=== PATIENT | male | born 1975 | race Caucasian/White ===

== ENCOUNTER 2023-03-27 16:20 | Inpatient (IN) ==
--- OUTSIDE RECORDS SUMMARY | 2023-03-27 16:24 | External Medical Summary ---
Author Name Unknown Address Unknown Organization [id number]:[facility] [place] [address] [facility] [address] Laboratory Report Ordering Provider Test Date Status DEV BARLOW 03/16/2023 11:22:42 Final Observation Date Value Abnormality Reference (Units ) Status TSH 03/16/2023 11:22:42 1.80 0.27-4.20 (uIU/mL) Final Performing Location [facility] [place] [facility] [address] [facility] [address]
--- OUTSIDE RECORDS SUMMARY | 2023-03-27 16:24 | External Medical Summary ---
Author Name Unknown Address Unknown Organization [id number]:[place] [place] [address] [facility] [address] Laboratory Report Ordering Provider Test Date Status CARMINA PLUNKETT 03/16/2023 11:22:42 Final Observation Date Value Abnormality Reference (Units ) Status Triglyceride 03/16/2023 11:22:42 140 <=174 ( mg/dL) Final Triglyceride Reference Range s (mg/dL):
<150 Acceptable
150-174 Borderline high
175-499 High
>=500 Very high Cholesterol 03/16/2023 11:22:42 195 <200 (mg /dL) Final Total Cholesterol Reference Ranges (mg/dL):
<200 Desirable
200-239 Borderline high
>=240 High HDL 03/16/2023 11:22:42 38 Below low normal >39 (mg/dL) Final HDL Cholesterol Reference Ra nges (mg/dL):
>=60 High (Desirable)
<50 Low (Undesirable) For Females
<40 Low (Undesirable) For Males NON-HDL CHOLESTEROL 03/16/2023 11:22:42 157 <=159 (mg/dL) Final Non-HDL Cholesterol Referenc e Range (mg/dL):
<100 Target level for high risk ASCVD patient
<130 Optimal for general population
130-159 Near optimal for general population
160-189 Borderline High
190-219 High
>=220 Very High LDL, (calculated) 03/16/2023 11:22:42 129 <= 129 (mg/dL) Final LDL Cholesterol Reference Ra nges (mg/dL):
<70 Target level for high risk ASCVD patient
<100 Optimal for general population
100-129 Near optimal for general population
130-159 Borderline high
160-189 High
>=190 Very high Performing Location LAB[facility] [place] - [address] [facility] [address]
--- OUTSIDE RECORDS SUMMARY | 2023-03-27 16:24 | External Medical Summary ---
Author Name Unknown Address Unknown Organization [id number]:[place] [facility] [place] [address] [facility] [address] [facility] [address] Laboratory Report Ordering Provider Test Date Status DIMITRIOSSIDNEYJAMIE 03/16/2023 11:22:42 Final Observation Date Value Abnormality Reference (Units ) Status HbA1C 03/16/2023 11:22:42 11.4 Above high normal 4. 0-5.6 (%) Final The use of HbA1c to monitor glycemic status is based on normal hemoglobin and HbA composition. This test should not be used in patients with abnormal hemoglobin that affects the half life of the red blood cell or the in vivo glycation rates. Glucose, estimated average 03/16/2023 11:22:42 280 Above high normal <126 (mg/dL) Junior suggs Performing Location [facility] [facility] [facility] [place] [address] [facility] [address]
--- OUTSIDE RECORDS SUMMARY | 2023-03-27 16:24 | External Medical Summary | Summary of Care ---
Author Name Unknown Organization [facility] Address [address] [place] [address] Phone [phone] Care Team Providers Care Fish Dressing Machine Feeder Name Role Phone Marlin Mason PA-C Primary Care Provider [phone] Reason for Visit * Reason Onset Date Comments Medication Refill 03/13/2023 Encounter Details Date Type Department Care Team ([facility] st Contact Info) Description 03/13/2023 Telephone [facility] [address] [place] [address] Marlin Mason PA-C [address] [place] [address] Medication Refill Allergies Active Allergy Reactions Criticality Noted Date Comments Metformin Diarrhea 06/24/2022 extreme documented as of this encounter (statuses as of 03/13/2023) Medications Medication Sig Dispensed Refills Start Date End Date Status HYDROCHLOROTHIAZIDE 25 MG PO TABSIndications:HTN, goal below 140/90 one tab by mouth daily 90 3 12/01/2006 Active Omeprazole 20 MG Oral Capsule Delayed Release (PriLOSEC)Indications :Gastroesophageal reflux disease with esophagitis without hemorrhage Take 1 Capsule by mouth in the morning. 1 hour before the first meal of the day. 90 Capsule 3 06/24/2022 Active Rosuvastatin Calcium 40 MG Oral Tablet (Crestor) Take 1 Tablet by mouth in the morning. 90 Tablet 3 06/27/2022 Active SITagliptin Phosphate 100 MG Oral Tablet (Januvia)Indications: Type 2 diabetes mellitus with hemoglobin A1c goal of less than 7.0% (HCC) Take 1 Tablet by mouth in the morning. 90 Tablet 1 06/27/2022 Active Lisinopril 40 MG Oral TabletIndications:HTN , goal below 140/90 Take 1 Tablet by mouth in the morning. 90 Tablet 1 08/24/2022 Active amLODIPine Besylate 10 MG Oral Tablet (Norvasc) One tablet by mouth in the morning 90 Tablet 1 08/24/2022 Active Metoprolol Succinate ER 25 MG Oral Tablet Extended Release 24 Hour (toPROL XL) Take 1 Tablet by mouth in the morning. 90 Tablet 1 08/24/2022 Active PARoxetine HCl 40 MG Oral Tablet (pAXil) TAKE 1 TABLET BY MOUTH IN THE MORNING 90 Tablet 1 01/30/2023 Active glipiZIDE 10 MG Oral Tablet (Glucotrol) TAKE 1 TABLET BY MOUTH TWICE DAILY 30 MIN BEFORE MORNING AND EVENING MEALS 180 Tablet 1 02/15/2023 Active documented as of this encounter (statuses as of 03/13/2023) Active Problems Problem Noted Date Diagnosed Date HTN, goal below 140/90 06/12/2006 ADVANCE DIRECTIVE INFORMATION 02/16/2005 Overview: booklet given documented as of this encounter (statuses as of 03/13/2023) Immunizations Name Administration Dates Next Due COVID-19 mRNA, LNP-s, No Pre serve, 2-Dose Series (InfiniDB) 07/16/2020,06/25/2020 Hepatitis B, 20+ yrs 01/24/2022 PPD 01/17/2022 Seasonal Influenza Virus Vac cine, Unspecified Formulation 01/07/2020,01/10/2017,01/24/2014 Seasonal Influenza, PF, 6 M & above, IM , (FluLaval or Fluzone) 01/19/2022 Tetanus Toxid Adsorbed 12/06/2010 documented as of this encounter Social History Tobacco Use Types Packs/Day Years Used Date Smoking Tobacco: Never Smokeless Tobacco: Never Comments:September 2004, prior on e PPD Alcohol Use Standard Drinks/Week Comments Never 0 (1 standard drink = 0.6 oz pur e alcohol) Sex and Gender Information Value Date Recorded Sex Assigned at Not on file Gender Identity Not on file Sexual Orientation Not on file Job Start Date Occupation Industry Not on file Not on file Not on file documented as of this encounter Miscellaneous Notes * Telephone Encounter - Ab Esquivel cook frozen dessert - 03/13/2023 1:13 PM EST Pt calling to request glipiZIDE 10 MG Oral Tablet (Glucotrol) . Informed pt that RX is available at their pharmacy. Pt verbalized understanding and stated they will check with their pharmacy regarding this medication. Thank you, Ab Esquivel Tooth Clerk I [facility] ([facility]) 03/13/2023,1:14 PM documented in this encounter Plan of Treatment Upcoming Encounters Date Type Department Care Team (Late st Contact Info) Description 03/15/2023 2:40 PM EST Office Visit [facility] [address] [place] [address] Marlin Mason PA-C [address] [place], [place] [id number] Health Maintenance Due Date Last Done Comments Pneumococcal Vaccine: Pediatrics (0 to 5 Years) and At-Risk Patients (6 to 64 Years) (1 - PCV) 1982 Depression Screening 1988 HIV Screening 1991 Hepatitis C Screening 1994 DTaP,Tdap,and Td Vaccines (1 - Tdap) 1995 Cologuard 2021 Colonoscopy 2021 Colorectal Cancer Screening 2021 Fecal Occult Blood Test 2021 Sigmoidoscopy 2021 Hepatitis B (2 of 3 - 19+ 3-dose series) 02/21/2022 01/24/2022 COVID-19 Vaccine (3 - 2022- season) 2022 07/16/2020, 06/25/2020 Influenza Vaccine (FLU shot) (#1) 2022 01/19/2022, 01/07/2020, 01/10/2017, Additional history exists GFR 06/25/2023 06/24/2022, 06/12/2006 Albumin/Creatinine Ratio 06/24/2025 06/24/2022 Diabetes Screening 06/24/2025 06/24/2022, 0 06/24/2022, 06/12/2006 Lipid Panel 06/25/2027 06/24/2022, 06/12/2006 GARDASIL-HPV IMMUNIZATION SERIES Aged Out No longer eligible based on patient's age to complete this topic MENINGOCOCCAL (MENACTRA/MENVEO) Aged Out No longer eligible based on patient's age to complete this topic documented as of this encounter Medical Devices Not on filedocumented as of this encounter Care Teams Fish Dressing Machine Feeder Relationship Specialty Start Date End Date Marlin Mason PA-C [address] [place] [id number] PCP - General Physician Glazing Machine Operator 06/24/22 documented as of this encounter
--- OUTSIDE RECORDS SUMMARY | 2023-03-27 16:24 | External Medical Summary | Summary of Care ---
Author Name Unknown Organization [facility] Address [address] [place] [address] Phone [phone] Care Team Providers Care Critical Power Install Technician Name Role Phone Marlin Mason PA-C Primary Care Provider [phone] [phone] Reason for Visit * Reason Comments Emergency Department Follow-Up Encounter Details Date Type Department Care Team (Latest Contact Info) Description 03/16/2023 10:20 AM EST Office Visit [facility] [address] [place] [address] Wei Melvin MD [address] [place] [address] Type 2 diabetes mellitus with hemoglobin A1c goal of less than 7.0% ([facility])*; HTN, goal below 140/90; Hyperlipidemia, unspecified hyperlipidemia type; Class 1 obesity without serious comorbidity with body mass index (BMI) of 34.0 to 34.9 in adult, unspecified obesity type; Sinus drainage; Screen for colon cancer Allergies Active Allergy Reactions Criticality Noted Date Comments Metformin Diarrhea 06/24/2022 extreme documented as of this encounter (statuses as of 03/16/2023) Medications Medication Sig Dispensed Refills Start Date End Date Status HYDROCHLOROTHIAZ AMBER 25 MG PO TABSIndications: HTN, goal below 140/90 one tab by mouth daily 90 3 12/01/2006 Active Omeprazole 20 MG Oral Capsule Delayed Release (PriLOSEC)Indica tions:Gastroesop hageal reflux disease with esophagitis without hemorrhage Take 1 Capsule by mouth in the morning. 1 hour before the first meal of the day. 90 Capsule 3 06/24/2022 Active Lisinopril 40 MG Oral TabletIndication s:HTN, goal below 140/90 Take 1 Tablet by [...] MORNING AND EVENING MEALS 180 Tablet 1 03/16/2023 Active SITagliptin Phosphate 100 MG Oral Tablet (Januvia)Indicat ions:Type 2 diabetes mellitus with hemoglobin A1c goal of less than 7.0% (HCC) Take 1 Tablet by mouth in the morning. 90 Tablet 3 03/16/2023 Active Simvastatin 40 MG Oral Tablet (Zocor) Take 1 Tablet by mouth every night at bedtime. 90 Tablet 3 03/16/2023 Active Cetirizine HCl 10 MG Oral Tablet (ZyrTEC) Take 1 Tablet by mouth in the morning. 90 Tablet 3 03/16/2023 Active Rosuvastatin Calcium 40 MG Oral Tablet (Crestor) Take 1 Tablet by mouth in the morning. 90 Tablet 3 06/27/2022 3 Discontinued SITagliptin Phosphate 100 MG Oral Tablet (Januvia)Indicat ions:Type 2 diabetes mellitus with hemoglobin A1c goal of less than 7.0% (HCC) Take 1 Tablet by mouth in the morning. 90 Tablet 1 06/27/2022 3 Discontinued(Refi ll) glipiZIDE 10 MG Oral Tablet (Glucotrol) TAKE 1 TABLET BY MOUTH TWICE DAILY 30 MIN BEFORE MORNING AND EVENING MEALS 180 Tablet 1 02/15/2023 3 Discontinued(Refi ll) documented as of this encounter (statuses as of 03/16/2023) Active Problems Problem Noted Date Diagnosed Date Hyperlipidemia 03/16/2023 Type 2 diabetes mellitus wit h hemoglobin A1c goal of less than 7.0% 03/16/2023 HTN, goal below 140/90 06/12/2006 ADVANCE DIRECTIVE INFORMATION 02/16/2005 Overview: booklet given documented as of this encounter (statuses as of 03/16/2023) Immunizations Name Administration Dates Next Due COVID-19 mRNA, LNP-s, No Pre serve, 2-Dose Series (Pfizer) 07/16/2020,06/25/2020 Hepatitis B, 20+ yrs 01/24/2022 PPD [...] on file documented as of this encounter Last Filed Vital Signs Vital Sign Reading Time Taken Comments Blood Pressure 110/80 03/16/2023 10:28 AM EST Pulse 68 03/16/2023 10:28 AM EST Temperature 36.4 C (97.5 F) 03/16/2023 10:[address] Respiratory Rate 18 03/16/2023 10:28 AM EST Oxygen Saturation - - Inhaled Oxygen Concentration - - Weight 120.2 kg (265 lb) 03/16/2023 10:28 AM EST Height 188 cm (6' 2") 03/16/2023 10:28 AM EST Body Mass Index 34.02 03/16/2023 10:28 AM EST documented in this encounter Progress Notes * Wei Melvin MD - 03/16/2023 10:45 AM EST Subjective Skyler Brooks is a 47 year old male. Chief Complaint Patient presents with Emergency Department Follow-Up HPI: Here for ER fu and routine check up Had acute chest tightness, SOB which has resolved Has some night cough with sinus drainage Covid test negative in ER and does not have fever or other sx Type 2 DM, uncontrolled , hba1c in may 10.3 Last time with PCP in may Taking only glipizide, didn't take januvia , crestor due to martinez Will resume januvia and zocor Eye exam today Hypertension, HL, obesity BMI 34 Taking medication as prescribed, see med list. No medication side effects noted. Advised patient tokeep healthy life style, regular exercise with good diet, tisha. low sodium diet. And also check BP at home too. Denies associated chest discomfort, chest heaviness, chest pressure, chest tightness, edema, palpitations and shortness of breath. PMH: Patient Active Problem List Diagnosis Code ADVANCE DIRECTIVE INFORMATION HTN, goal below 140/90 I10 Hyperlipidemia E78.5 Type 2 diabetes mellitus with hemoglobin A1c goal of less than 7.0% ([facility]) E11.9 Current Outpatient Medications Medication Sig Dispense Refill HYDROCHLOROTHIAZIDE 25 MG PO TABS one tab by mouth daily 90 3 Omeprazole 20 MG Oral Capsule Delayed Release (PriLOSEC) Take 1 Capsule by mouth in the morning. 1 hour before the first meal of the day. 90 Capsule 3 Lisinopril 40 MG Oral Tablet Take 1 Tablet by mouth in the morning. 90 Tablet 1 amLODIPine Besylate 10 MG Oral Tablet (Norvasc) One tablet by mouth in the morning 90 Tablet 1 Metoprolol Succinate ER 25 MG Oral Tablet Extended Release 24 Hour (toPROL XL) Take 1 Tablet by mouth in the morning. 90 Tablet 1 PARoxetine HCl 40 MG Oral Tablet (pAXil) TAKE 1 TABLET BY MOUTH IN THE MORNING 90 Tablet 1 glipiZIDE 10 MG Oral Tablet (Glucotrol) TAKE 1 TABLET BY MOUTH TWICE DAILY 30 MIN BEFORE MORNING AND EVENING MEALS 180 Tablet 1 SITagliptin Phosphate 100 MG Oral Tablet (Januvia) Take 1 Tablet by mouth in the morning. 90 Tablet3 Simvastatin 40 MG Oral Tablet (Zocor) Take 1 Tablet by mouth every night at bedtime. 90 Tablet 3 Cetirizine HCl 10 MG Oral Tablet (ZyrTEC) Take 1 Tablet by mouth in the morning. 90 Tablet 3 No current facility-administered medications for this visit. Past Medical History: Diagnosis Date HTN, goal to be determined Past Surgical History: Procedure Laterality Date EXCISION OF NECK CYST, DEEP as REPAIR INGUINAL HERNIA, UNDER 6 MO as Review of patient's allergies indicates: Allergen Reactions Metformin Diarrhea extreme Family History Problem Relation Age of Onset Diabetes Mother Diabetes Grandmother (Maternal) Diabetes Father Diabetes Grandfather (Paternal) Heart Disorder Grandfather (Paternal) triple bypass Hypertension Father Family Status Relation Status Mo Alive dm, eye problems, Fa at age 55 pneumonia, neuromuscular disease,high blood pressure Sis Alive high blood pressure MGMA (Not Specified) PGFA (Not Specified) Social History Socioeconomic History Marital status: Spouse name: Not on file Number of children: 0 Years of education: Not on file Highest education level: Not on file Occupational History Occupation: [employer] Employer: [employer] Comment: [employer] Tobacco Use Smoking status: Never Smokeless tobacco: Never Tobacco comments: September 2004, prior one PPD Substance and Sexual Activity Alcohol use: Never Drug use: Never Sexual activity: Not on file Other Topics Concern Not on file Social History Narrative Not on file Social Determinants of Health Financial Resource Strain: Not on file Food Insecurity: Not on file Transportation Needs: Not on file Physical Activity: Not on file Stress: Not on file Social Connections: Not on file Intimate Partner Violence: Not on file Housing Stability: Not on file Review of Systems Constitutional: Positive for fatigue. Negative for activity change, appetite change, chills, diaphoresis, fever and unexpected weight change. HENT: Positive for congestion and postnasal drip. Negative for sore throat and tinnitus. Eyes: Positive for visual disturbance. Respiratory: Positive for cough. Negative for chest tightness, shortness of breath and wheezing. Cardiovascular: Negative for chest pain, palpitations and leg swelling. Gastrointestinal: Negative for abdominal distention, abdominal pain, blood in stool, constipation, diarrhea, nausea and vomiting. Endocrine: Negative. Musculoskeletal: Negative for gait problem. Allergic/Immunologic: Positive for environmental allergies. Neurological: Negative for dizziness, weakness, light-headedness, numbness and headaches. Psychiatric/Behavioral: Positive for sleep disturbance (cough from drainage). Negative for agitation, behavioral problems and dysphoric mood. The patient is not nervous/anxious. Objective BP 110/80 | Pulse 68 | Temp 36.4 C (97.5 F) | Resp 18 | Ht 1.88 m (6' 2") | Wt 120.2 kg (265 lb) | BMI 34.02 kg/m | BSA 2.51 m Physical Exam Constitutional: General: He is not in acute distress. Appearance: Normal appearance. He is obese. He is not ill-appearing, toxic- appearing or diaphoretic. HENT: Head: Normocephalic and atraumatic. Nose: Congestion present. Eyes: Extraocular Movements: Extraocular movements intact. Cardiovascular: Rate and Rhythm: Normal rate and regular rhythm. Pulses: Normal pulses. Heart sounds: Normal heart sounds. No murmur heard. Pulmonary: Effort: Pulmonary effort is normal. No respiratory distress. Breath sounds: Normal breath sounds. No stridor. No wheezing, rhonchi or rales. Chest: Chest wall: No tenderness. Abdominal: Palpations: Abdomen is soft. Musculoskeletal: General: Normal range of motion. Right lower leg: No edema. Left lower leg: No edema. Neurological: General: No focal deficit present. Mental Status: He is alert and oriented to person, place, and time. Cranial Nerves: No cranial nerve deficit. Psychiatric: Mood and Affect: Mood normal. Behavior: Behavior normal. ASSESSMENT/PLAN: Type 2 diabetes mellitus with hemoglobin A1c goal of less than 7.0% ([facility]) (Primary) - TELEMEDICINE DIABETIC EYE - HEMOGLOBIN A1C; Future; Expected date: 03/16/2023 - SITagliptin Phosphate 100 MG Oral Tablet (Januvia); Take 1 Tablet by mouth in the morning. - LIPID PANEL WITH DIRECT LDL IF TG IS HIGH; Future; Expected date: 03/16/2023 - TSH WITH FREE T4 IF INDICATED; Future; Expected date: 03/16/2023 - COMPREHENSIVE METABOLIC PANEL; Future; Expected date: 03/16/2023 HTN, goal below 140/90 - LIPID PANEL WITH DIRECT LDL IF TG IS HIGH; Future; Expected date: 03/16/2023 - TSH WITH FREE T4 IF INDICATED; Future; Expected date: 03/16/2023 - COMPREHENSIVE METABOLIC PANEL; Future; Expected date: 03/16/2023 Hyperlipidemia, unspecified hyperlipidemia type - LIPID PANEL WITH DIRECT LDL IF TG IS HIGH; Future; Expected date: 03/16/2023 - TSH WITH FREE T4 IF INDICATED; Future; Expected date: 03/16/2023 - COMPREHENSIVE METABOLIC PANEL; Future; Expected date: 03/16/2023 Class 1 obesity without serious comorbidity with body mass index (BMI) of 34.0 to 34.9 in adult, unspecified obesity type - LIPID PANEL WITH DIRECT LDL IF TG IS HIGH; Future; Expected date: 03/16/2023 - TSH WITH FREE T4 IF INDICATED; Future; Expected date: 03/16/2023 Sinus drainage Screen for colon cancer - COLOGUARD Other orders - glipiZIDE 10 MG Oral Tablet (Glucotrol); TAKE 1 TABLET BY MOUTH TWICE DAILY 30 MIN BEFORE MORNINGAND EVENING MEALS - Simvastatin 40 MG Oral Tablet (Zocor); Take 1 Tablet by mouth every night at bedtime. - Cetirizine HCl 10 MG Oral Tablet (ZyrTEC); Take 1 Tablet by mouth in the morning. Follow Up: Return in about 2 weeks (around 03/30/2023) for Clinic Visit. | For: Clinic Visit Take meds Diet change Hydration Check glucose twice daily , update me in 2 wks Eye exam today Blood tsets Wei Melvin MD documented in this encounter Nursing Notes * Rose Marie Gallegos LPN - 03/16/2023 10:30 AM EST The patient has been properly identified by confirmation of name and date of . Chief Complaint Patient presents with Emergency Department Follow-Up documented in this encounter Plan of Treatment Upcoming Encounters Date Type Department Care Team (Late st Contact Info) Description 03/30/2023 10:20 AM EST Office Visit [facility] [address] [facility] [place] [address] Wei Melvin MD [address] [facility] [place] [address] Scheduled Orders Name Type Priority Associated Diagnoses Orde r Schedule HEMOGLOBIN A1C Lab Routine Type 2 diabetes mellitus with hemoglobin A1c goal of less than 7.0% (HCC) Expected: 03/16/2023 (Approximate), Expires: 03/15/2024 COLOGUARD Lab Unrestricted Lab Screen for colon cancer Ordered: 03/16/2023 LIPID PANEL WITH DIRECT LDL IF TG IS HIGH Lab Routine Type 2 diabetes mellitus with hemoglobin A1c goal of less than 7.0% (HCC) HTN, goal below 140/90 Hyperlipidemia, unspecified hyperlipidemia type Class 1 obesity without serious comorbidity with body mass index (BMI) of 34.0 to 34.9 in adult, unspecified obesity type Expected: 03/16/2023, Expires: 03/16/2024 TSH WITH FREE T4 IF INDICATED Lab Routine Type 2 diabetes mellitus with hemoglobin A1c goal of less than 7.0% (HCC) HTN, goal below 140/90 Hyperlipidemia, unspecified hyperlipidemia type Class 1 obesity without serious comorbidity with body mass index (BMI) of 34.0 to 34.9 in adult, unspecified obesity type Expected: 03/16/2023 (Approximate), Expires: 03/15/2024 COMPREHENSIVE METABOLIC PANEL Lab Routine Type 2 diabetes mellitus with hemoglobin A1c goal of less than 7.0% (HCC) HTN, goal below 140/90 Hyperlipidemia, unspecified hyperlipidemia type Expected: 03/16/2023 (Approximate), Expires: 03/15/2024 Health Maintenance Due Date Last Done Comments Pneumococcal Vaccine: Pediatrics (0 to 5 Years) and At-Risk Patients (6 to 64 Years) (1 - PCV) 1982 Depression Screening 1988 HIV Screening 1991 Diabetic Eye Exam 1994 Diabetic Foot Exam 1994 Hepatitis C Screening 1994 DTaP,Tdap,and Td Vaccines (1 - Tdap) 1995 Cologuard 2021 Colonoscopy 2021 Colorectal Cancer Screening 2021 Fecal Occult Blood Test 2021 Sigmoidoscopy 2021 Hepatitis B (2 of 3 - 19+ 3-dose series) 02/21/2022 01/24/2022 COVID-19 Vaccine (3 - season) 2022 07/16/2020, 06/25/2020 Influenza Vaccine (FLU shot) (#1) 2022 01/19/2022, 01/07/2020, 01/10/2017, Additional history exists HbA1c 12/24/2022 06/24/2022 Albumin/Creatinine Ratio 06/25/2023 06/24/2022 GFR 06/25/2023 06/24/2022, 06/12/2006 Lipid Panel 06/25/2027 06/24/2022, 06/12/2006 GARDASIL-HPV IMMUNIZATION SERIES Aged Out No longer eligible based on patient's age to complete this topic MENINGOCOCCAL (MENACTRA/MENVEO) Aged Out No longer eligible based on patient's age to complete this topic documented as of this encounter Medical Devices Not on filedocumented as of this encounter Visit Diagnoses Diagnosis Type 2 diabetes mellitus with hemoglobin A1c goal of less than 7.0% (HCC)- Primary HTN, goal below 140/90 Unspecified essential hypertension Hyperlipidemia, unspecified hyperlipidemia type Class 1 obesity without serious comorbidity with body mass index (BMI) of 34.0 to 34.9 in adult, unspecified obesity type Sinus drainage Other diseases of nasal cavity and sinuses Screen for colon cancer Special screening for malignant neoplasms, colon documented in this encounter Care Teams Critical Power Install Technician Relationship Specialty Start Date End Date Marlin Mason PA-C [address] [facility] [place] [id number] PCP - General Physician Executive Vice President And Chief Operating Officer 06/24/22 documented as of this encounter
--- OUTSIDE RECORDS SUMMARY | 2023-03-27 16:24 | External Medical Summary ---
Author Name Unknown Address Unknown Organization [id number]:[facility] [place] - [address] [facility] [id number] Laboratory Report Ordering Provider Test Date Status DEV BARLOW 03/16/2023 11:22:42 Final Observation Date Value Abnormality Reference (Units ) Status BUN 03/16/2023 11:22:42 14 6-20 (mg/dL) Final Creatinine 03/16/2023 11:22:42 0.6 0.6-1.2 (mg/dL) Final Glomerular filtration rate/1.73 sq M.predicted [Volume Rate/Area] in Serum, Plasma or Blood by Creatinine-based formula (CKD-EPI) 03/16/2023 11:22:42 >90 >=60 (mL/min) Final eGFR is calculated based on the CKD-EPI 2020 equation SODIUM 03/16/2023 11:22:42 135 135-146 (m mol/L) Final Potassium 03/16/2023 11:22:42 4.8 3.5-5.1 (m mol/L) Final Cl 03/16/2023 11:22:42 100 98-107 (mm ol/L) Final CO2 03/16/2023 11:22:42 27 22-32 (mmo l/L) Final Anion gap 03/16/2023 11:22:42 8 7-15 (mmol /L) Final Glucose 03/16/2023 11:22:42 308 Above high normal 70 -120 (mg/dL) Final Albumin 03/16/2023 11:22:42 4.3 3.8-5.0 (g /dL) Final AST (Aspartate aminotransferase) 03/16/2023 11:22:42 17 10-50 (U/L) Fin al Alk Phos 03/16/2023 11:22:42 83 35-130 (U/ L) Final Bilirubin, Total 03/16/2023 11:22:42 0.3 <=1 .2 (mg/dL) Final Calcium 03/16/2023 11:22:42 9.3 8.4-10.2 ( mg/dL) Final Protein 03/16/2023 11:22:42 6.9 6.0-8.3 (g /dL) Final ALT (Alanine aminotransferase) 03/16/2023 11:22:42 30 10-50 (U/L) Junior suggs Performing Location [facility] [place] - [facility] [address] [facility] [id number]
--- OUTSIDE RECORDS SUMMARY | 2023-03-27 16:24 | External Medical Summary | Summary of Care ---
Author Name Unknown Organization [facility] Address [address] [place] [address] Phone [phone] Care Team Providers Care Sort Operations Supervisor Name Role Phone Marlin Mason PA-C Primary Care Provider [phone] Reason for Visit * Reason Onset Date Comments Status Check 03/21/2023 Encounter Details Date Type Department Care Team ([facility] st Contact Info) Description 03/21/2023 Telephone [facility] [address] [place] [address] Marlin Mason PA-C [address] [place] [address] Status Check Allergies Active Allergy Reactions Criticality Noted Date Comments Metformin Diarrhea 06/24/2022 extreme documented as of this encounter (statuses as of 03/21/2023) Medications Medication Sig Dispensed Refills Start Date [...] 3 06/24/2022 Active Lisinopril 40 MG Oral TabletIndications:HTN , [...] the morning. 90 Tablet 3 03/16/2023 Active documented as of this encounter (statuses as of 03/21/2023) Active Problems Problem Noted Date Diagnosed Date Hyperlipidemia 03/16/2023 Type 2 diabetes mellitus wit h hemoglobin A1c goal of less than 7.0% 03/16/2023 HTN, goal below 140/90 06/12/2006 ADVANCE DIRECTIVE INFORMATION 02/16/2005 Overview: booklet given documented as of this encounter (statuses as of 03/21/2023) Immunizations Name Administration Dates Next Due COVID-19 mRNA, LNP-s, No Pre serve, 2-Dose Series (2U) 07/16/2020,06/25/2020 Hepatitis B, 20+ yrs 01/24/2022 PPD [...] encounter Miscellaneous Notes * Telephone Encounter - Vinita Azar PHARM Tech - 03/21/2023 10:38 AM EST Pt calling to request glipiZIDE 10 MG Oral Tablet . Informed pt that RX is available at their pharmacy. Pt verbalized understanding and stated they will check with their pharmacy regarding this medication. Thank you, [facility] U[facility]olstery [facility] ([facility] (formerly Telepharm[facility]) 03/21/2023,10:39 AM documented in this encounter Plan of Treatment Upcoming Encounters Date Type Department Care Team (Late st Contact Info) Description 03/30/2023 10:20 AM EST Office Visit [facility] [address] [place] [address] Wei Melvin MD [address], [place] [id number] Health Maintenance Due Date Last Done Comments Pneumococcal Vaccine: Pediatrics (0 to 5 Years) and At-Risk Patients (6 to 64 Years) (1 - PCV) 1982 Depression Screening 1988 HIV Screening 1991 Diabetic Foot Exam 1994 Hepatitis C Screening 1994 DTaP,Tdap,and Td Vaccines (1 - Tdap) 1995 Cologuard 2021 Colonoscopy 2021 Colorectal Cancer Screening 2021 Fecal Occult Blood Test 2021 Sigmoidoscopy 2021 Hepatitis B (2 of 3 - 19+ 3-dose series) 02/21/2022 01/24/2022 COVID-19 Vaccine (3 - 2023-24 season) 2022 07/16/2020, 06/25/2020 Influenza Vaccine (FLU shot) (#1) 2022 01/19/2022, 01/07/2020, 01/10/2017, Additional history exists Albumin/Creatinine Ratio 06/25/2023 06/24/2022 HbA1c 09/15/2023 03/16/2023, 06/24/2022 Diabetic Eye Exam 03/16/2024 03/16/2023 GFR 03/16/2024 03/16/2023, 05/27, 06/12/2006 Lipid Panel 03/16/2028 03/16/2023, 05/27, 06/12/2006 GARDASIL-HPV IMMUNIZATION SERIES Aged Out No longer eligible based on patient's age to complete this topic MENINGOCOCCAL (MENACTRA/MENVEO) Aged Out No longer eligible based on patient's age to complete this topic documented as of this encounter Medical Devices Not on filedocumented as of this encounter Care Teams Sort Operations Supervisor Relationship Specialty Start Date End Date Marlin Mason PA-C [address] [facility] [place] [id number] PCP - General Physician Cutting Supervisor 06/24/22 documented as of this encounter
--- OUTSIDE RECORDS SUMMARY | 2023-03-27 16:24 | External Medical Summary | Summary of Care ---
Author Name Unknown Organization [facility] Address [address] [place] [address] Phone [phone] Care Team Providers Care Manager City Name Role Phone Marlin Mason PA-C Primary Care Provider [phone] Reason for Visit * Reason Comments Emergency Department Follow-Up Encounter Details Date Type Department Care Team (Latest Contact Info) Description 03/16/2023 10:20 AM EST Office Visit [facility] [address] [place] [address] Wei Melvin MD [address] [place] [address] Type 2 diabetes mellitus with hemoglobin A1c goal of less than 7.0% ([facility])*; HTN, goal below 140/90; Hyperlipidemia, unspecified hyperlipidemia type; Class 1 obesity without serious comorbidity with body mass index (BMI) of 34.0 to 34.9 in adult, unspecified obesity type; Sinus drainage; Screen for colon cancer; DM type 2 nursing care encounter (HCC) Allergies Active Allergy Reactions Criticality Noted Date [...] 10:28 AM EST documented in this encounter Patient Instructions * Patient Instructions* Bala Gill LPN - 03/16/2023 11:18 AM EST Images from the original note were not included. Diabetic Retinopathy: Evaluating Your Eyes Diabetic retinopathy is a condition that happens when diabetes damages blood vessels in the rear ofthe eye. It can lead to vision loss. To help catch it early, have a complete dilated eye exam at least once a year. During the exam, the eye healthcare provider will review your medical history, examine your eyes, and check your vision. Women who are and have pre-existing type 1 or type 2 diabetes have an increased risk of retinopathy. Women with diabetes should have an eye exam before or in the first trimester. They should continue to be monitored every trimester and for 1 year after delivery, depending on the severity of the retinopathy. The retina is the light-sensitive part of the eye that allows you to see. High blood sugar can damage blood vessels of the retina and cause them to leak or bleed. This damage can lead to abnormal blood vessel growth. This condition is called diabetic retinopathy. You may not have symptoms early in the disease. Later, there may be floaters, blurred vision, or poor night vision. There may also be partial or complete vision loss. Early cases of diabetic retinopathy can be treated by carefully controlling blood sugar, blood pressure, and cholesterol. Surgery or laser treatments may help restore lost vision. Laser surgery can shrink abnormal blood vessels or close ones that are leaking. Medicines injected in the eye can help decrease swelling of the retina. Home care Take all medicines, including insulin or oral diabetic medicine, exactly as prescribed. Follow the diet advised by your healthcare provider. If you have high cholesterol, follow a low-fat, low-cholesterol diet. Monitor blood sugars as advised. Try to achieve your ideal weight. If you smoke, quit smoking. Tobacco use worsens the effect of diabetes on your blood vessels. If you have high blood pressure, consider buying an automatic blood pressure machine. These are available at most pharmacies. Use this to monitor your blood pressure. Report your blood pressure readings to your healthcare provider. Exercise regularly. Follow-up care Follow up with your healthcare provider, or as advised. You must have a complete eye exam at least once a year, more often if needed. Untreated diabetic retinopathy can lead to complete loss of vision. Occupational therapists can help you adapt to any vision loss you have, including learning techniques to safely administer insulin. When to seek medical advice Call your healthcare provider right away if any of these occur. Increasing blurriness or any sudden changes in your vision Sudden flashes of light inside your eye New floaters (small dots or strings that seem to be moving across your field of vision) Eye pain, redness, or discharge from your eyelid New dark spots appearing in your field of vision Halos around lights Dimness of vision Partial or complete loss of vision Women with diabetes should have a complete eye exam before becoming , or as soon as possible when they find out they are . Retinopathy sometimes worsens during . Your eye exam Your eye healthcare provider uses an eye chart and other tools to check your vision. Then he or sheexamines your eyes for signs of disease. You are given eye drops to widen (dilate) your pupils. Youmay have one or more of the following tests: Tonometry to measure fluid pressure inside the eye. Slit lamp exam to allow the healthcare provider to view the structures of your eye. Ultrasound to create an image of the eye using sound waves. Ultrasound may be used if blood is found in the clear gel that fills the eye (vitreous). Ocular coherence tomography (OCT) to create an image of the retina using light waves. This shows ifthere is fluid leaking into certain parts of the eye. It can also measure the thickness of the retina. Fluorescein angiography This test may be done to check the health of the inside lining of the eye (retina). It also checks the tiny blood vessels (capillaries) that carry blood to the retina. During the test: Photographs are taken of the retina. A dye is then injected into the bloodstream through the arm or hand. The dye travels to the capillaries in the eye. More photographs are taken of the retina. The dye causes the capillaries to stand out on the photographs. You may feel brief nausea during the procedure. For a few hours after the test, your skin, eyes, and urine may appear yellow. Talk with your healthcare provider for more information about this test. Date Last Reviewed: 08/26/201519993276-4981 [employer]. [address] [place] [address], [place] [address]. All rights reserved. This information is not intended as a substitute for professional medical care. Always follow your healthcare professional's instructions. documented in this encounter Progress Notes * Bala Gill LPN - 03/16/2023 11:18 AM EST The importance of having a yearly diabetic eye exam has been discussed with patient. Order and/or Referral placed along with patient instructions. Provider made aware. Bala Gill LPN * Wei Melvin MD - 03/16/2023 10:45 [...] hemoglobin A1c goal of less than 7.0% ([facility]) E11.9 Current Outpatient Medications Medication Sig Dispense [...] Date EXCISION OF NECK CYST, DEEP as infant REPAIR INGUINAL HERNIA, UNDER 6 MO as infant Review of patient's allergies indicates: Allergen Reactions [...] level: Not on file Occupational History Occupation: [employer] Employer: [email or web address] Comment: [employer] Tobacco Use Smoking status: Never Smokeless tobacco: [...] hemoglobin A1c goal of less than 7.0% ([facility]) (Primary) - TELEMEDICINE DIABETIC EYE - HEMOGLOBIN [...] documented in this encounter Nursing Notes * Bala Gill LPN - 03/16/2023 10:30 AM EST The patient has been properly identified by confirmation of name and date of . Chief Complaint Patient presents with Emergency Department Follow-Up documented in this encounter Miscellaneous Notes * Addendum Note - Bala Gill LPN - 03/16/2023 11:19 AM ESTAddended by: BALA GILL on: 03/16/2023 11:19 AM Modules accepted: Orders documented in this encounter Plan of Treatment Upcoming Encounters Date Type Department Care Team (Late st Contact Info) Description 03/30/2023 10:20 AM EST Office Visit [facility] [address] [place] [address] Wei Melvin MD [address], [place] [phone] Scheduled Orders Name Type Priority Associated Diagnoses [...] series) 02/21/2022 01/24/2022 COVID-19 Vaccine (3 - 2022-24 season) 2022 07/16/2020, 06/25/2020 Influenza Vaccine (FLU [...] cancer Special screening for malignant neoplasms, colon DM type 2 nursing care encounter (HCC) Type II or unspecified type diabetes mellitus without mention of complication, not stated as uncontrolled documented in this encounter Care Teams Manager City Relationship Specialty Start Date End Date Marlin Mason PA-C [address] [facility] [place] [address] PCP - General Physician Mobile Security Architect 06/24/22 documented as of this encounter
--- OUTSIDE RECORDS SUMMARY | 2023-03-27 16:24 | External Medical Summary | Summary of Care ---
Author Name Unknown Organization [facility] Address [address] [place] [address] Phone [phone] Care Team Providers Care Firmware Test Engineer Name Role Phone Marlin Mason PA-C Primary Care Provider [phone] [phone] Reason for Visit * Reason Comments Outpatient Testing Encounter Details Date Type Department Care Team (Late st Contact Info) Description 03/16/2023 11:10 AM EST Laboratory [facility] [place] [address] [place] [id number] [place] [address] [place], [place] [phone] HTN, goal below 140/90; Dyslipidemia, goal LDL below 70; Type 2 diabetes mellitus with hemoglobin A1c goal of less than 7.0% ([facility]); Hyperlipidemia, unspecified hyperlipidemia type; Class 1 obesity without serious comorbidity with body mass index (BMI) of 34.0 to 34.9 in adult, unspecified obesity type Allergies Active Allergy Reactions Criticality Noted Date [...] mRNA, LNP-s, No Pre serve, 2-Dose Series ([employer]) 07/16/2020,06/25/2020 Hepatitis B, 20+ yrs 01/24/2022 PPD [...] on file documented as of this encounter Plan of Treatment Upcoming Encounters Date Type Department Care Team (Late st Contact Info) Description 03/30/2023 10:20 AM EST Office Visit [facility] [address] [place] [address] Wei Melvin MD [address] [place] [address] Pending Results Name Type Priority Associated Diagnoses Date /Time LIPID PANEL WITH DIRECT LDL IF TG IS HIGH Lab Routine HTN, goal below 140/90 Dyslipidemia, goal LDL below 70 03/16/2023 11:22 AM EST HEMOGLOBIN A1C Lab Routine Type 2 diabetes mellitus with hemoglobin A1c goal of less than 7.0% (HCC) 03/16/2023 11:22 AM EST TSH WITH FREE T4 IF INDICATED Lab Routine Type 2 diabetes mellitus with hemoglobin A1c goal of less than 7.0% (HCC) HTN, goal below 140/90 Hyperlipidemia, unspecified hyperlipidemia type Class 1 obesity without serious comorbidity with body mass index (BMI) of 34.0 to 34.9 in adult, unspecified obesity type 03/16/2023 11:22 AM EST COMPREHENSIVE METABOLIC PANEL Lab Routine Type 2 diabetes mellitus with hemoglobin A1c goal of less than 7.0% (HCC) HTN, goal below 140/90 Hyperlipidemia, unspecified hyperlipidemia type 03/16/2023 11:22 AM EST Health Maintenance Due Date Last Done Comments [...] as of this encounter Visit Diagnoses Diagnosis HTN, goal below 140/90 Unspecified essential hypertension Hyperlipidemia, unspecified hyperlipidemia type Type 2 diabetes mellitus with hemoglobin A1c goal of less than 7.0% (HCC) Class 1 obesity without serious comorbidity with body mass index (BMI) of 34.0 to 34.9 in adult, unspecified obesity type documented in this encounter Care Teams Firmware Test Engineer Relationship Specialty Start Date End Date Marlin Mason PA-C [address] [facility] [place] [id number] PCP - General Physician Events Traffic Controller 06/24/22 documented as of this encounter
--- NOTE | 2023-03-27 16:38 | ED Triage Note ---
Date of Service March 27, 2023 Provider in Triage Author: Bill Hilliard A History of Present Illness This patient was briefly evaluated while in triage. An abbreviated physical exam was performed. This patient is a 47-year-old Male who presents to the ED for evaluation of illness for the past 3 days. Fever 101. Cough. 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 Has schedule out patient appointment in 3 days. Was at work and felt near syncopal tonight. Lightheaded. Physical Exam Limited Triage Exam: VITALS: Vitals are noted on the nurse's note and reviewed by myself. Vital signs stable. GENERAL: Well-developed, well-nourished, white male, who is in no acute distress and resting comfortably. Patient is cooperative with the examination. HEART: Regular rate and rhythm without murmurs gallops or rubs. LUNGS: Clear to auscultation bilaterally without wheezes, rales or rhonchi. No retractions or accessory muscle use. NEURO: Patient was alert and oriented to person place and time. CN II through XII grossly intact. Initial orders for labs and / or imaging were placed and patient was placed in the waiting area until a bed is available. Please see further documentation for the full ED course.
[2023-03-27] MEDS ORDERED: SODIUM CHLORIDE 0.9% 1,000 ML IV SCH (16:45)
[2023-03-27 17:10] LABS: Basophils # (auto) 0.01 K/uL (0.00-0.20); Basophils % (auto) 0.2 %; Eosinophils # (auto) 0.02 K/uL (0.00-0.50); Eosinophils % (auto) 0.3 %; Hematocrit (blood only) 47.5 % (42.0-52.0); Hemoglobin 15.8 g/dl (14.0-18.0); Immature Granulocytes # (auto) 0.01 K/uL (0.01-0.20); Immature Granulocytes % (auto) 0.2 %; Lymphocytes # (auto) 1.01 K/uL (1.20-3.40); Lymphocytes % (auto) 16.4 %; Mean Corpuscular Hemoglobin 29.2 pg (25.0-34.0); Mean Corpuscular Hgb Conc 33.3 g/dL (32.0-36.0); Mean Corpuscular Volume 87.6 fL (80.0-100.0); Mean Platelet Volume 11.2 fL (9.4-12.4); Monocytes # (auto) 0.42 K/uL (0.11-0.59); Monocytes % (auto) 6.8 %; Neutrophils # (auto) 4.68 K/uL (1.40-6.50); Neutrophils % (auto) 76.1 %; Platelet Count 269 K/uL (130-400); RDW Coefficient of Variation 12.6 % (11.5-14.5); RDW Standard Deviation 40.2 fL (36.4-46.3); Red Blood Count 5.42 M/uL (4.70-6.10); White Blood Count 6.15 K/ul (4.8-10.8)
[2023-03-27 17:26] LABS: Albumin Globulin Ratio 1.2 (0.9-2); Albumin Level 4.4 gm/dl (3.4-5.0); BUN Creatinine Ratio 11.5 (10-20); Bilirubin,Total 0.6 mg/dl (0.2-1.0); Calcium 9.2 mg/dl (8.6-10.3); Creatinine Clr Calc Pharmacy 101.6 ml/min; Est GFR (African American) 81.9 ml/min; Est GFR (Non-African American) 70.7 ml/min; Globulin 3.7 gm/dl (2.5-4.0); Potassium 4.3 mmol/L (3.5-5.1); Total Protein 8.1 gm/dl (6.0-8.3)
[2023-03-27 17:33] LABS: Troponin I High Sensitivity 4.8 pg/ml (0-20)
[2023-03-27 17:49] LABS: Adenovirus PCR Not Detected (NotDetected); Bordetella parapertussis PCR Not Detected (NotDetected); Bordetella pertussis PCR Not Detected (NotDetected); Chlamydia pneumoniae PCR Not Detected (NotDetected); Coronavirus 229E PCR Not Detected (NotDetected); Coronavirus CoV-2 (COVID19)PCR Not Detected (NotDetected); Coronavirus HKU1 PCR Not Detected (NotDetected); Coronavirus NL63 PCR Not Detected (NotDetected); Coronavirus OC43PCR Not Detected (NotDetected); Human Metapneumovirus PCR Not Detected (NotDetected); Influenza B PCR Not Detected (NotDetected); Mycoplasma pneumoniae PCR Not Detected (NotDetected); Parainfluenza Virus 1 PCR Not Detected (NotDetected); Parainfluenza Virus 2 PCR Not Detected (NotDetected); Parainfluenza Virus 3 PCR Not Detected (NotDetected); Parainfluenza Virus 4 PCR Not Detected (NotDetected); Respiratory Syncytial VirusPCR Not Detected (NotDetected); Rhinovirus/Enterovirus PCR Not Detected (NotDetected)
[2023-03-27 18:53] LABS: Influenza A (H1 2009) PCR DETECTED (NotDetected)
--- NOTE | 2023-03-27 19:02 | Emergency Department Note ---
Impression & Plan DKA (diabetic ketoacidosis), Viral infection, Hyperglycemia ED Provider Note NAME: WM ALMANZA AGE: 47 SEX: M : 1975 ARRIVES VIA: Walk-In INFORMANT: Patient ED PROVIDER(S): David Poon DO CHIEF COMPLAINT: cough and congestion HPI: Patient is a 47-year-old male who presents to the ER for upper respiratory symptoms that started this past Monday with cough, congestion, and sore throat. He notes he had a fever of 101. Fever and sore throat have abated since then and the cough has been present. He admits to shortness of breath. Denies any history of COPD or asthma. Does have a history of type 2 diabetes and takes oral medications. No dysuria, urgency, or frequency. No other exacerbating or remitting factors. ADDITIONAL HISTORY OBTAINED: Per HPI Chronic Medical/Social Conditions Affecting Care: Per HPI PAST MEDICAL HISTORY:See Below PAST SURGICAL HISTORY:See Below FAMILY HISTORY:See Below SOCIAL HISTORY:See Below HOME MEDICATIONS:See Below ALLERGIES:See Below VITALS:See Below PHYSICAL EXAMINATION: GENERAL: Sitting up in bed, alert, well appearing, well nourished, no distress, non-toxic, persistent cough EYE EXAM: normal conjunctiva. PERRL and EOM's grossly intact. OROPHARYNX: no exudate, no erythema, lips, buccal mucosa, and tongue normal and mucous membranes are moist NECK: supple, no nuchal rigidity, no adenopathy, non-tender LUNGS: Clear to auscultation. Normal chest wall mechanics HEART: no murmurs, S1 normal and S2 normal ABDOMEN: abdomen soft, non-tender, normo-active bowel sounds, no masses, no rebound or guarding. BACK: Back is symmetrical on inspection and there is no deformity, no midline tenderness, no CVA tenderness. SKIN: no rashes and no bruising UPPER EXTREMITIES: upper extremities are grossly normal. LOWER EXTREMITIES: No pitting edema. NEURO EXAM: Normal sensorium, cranial nerves II-XII grossly intact, normal speech, no gross weakness of arms, no gross weakness of legs. MEDICAL DECISION MAKING: Patient is a 47-year-old male who presents to the ER for above-stated complaint. IV was established blood work is obtained. Presents to the ER for upper respiratory symptoms. Labs shows no significant leukocytosis or anemia. VBG with a pH 7.3. CO2 is low at 20. There was a gap of 13. Glucose was elevated just under 400. A1c elevated at 11. LFTs bilirubin and troponin was negative. Nasal swab was positive for influenza A H 03/2008. Chest x-ray with no focal infiltrate. He was given 2 L of IV fluids as well as IV insulin and placed on a drip per their request of the hospitalist. Sugars trended down [facility]. Consults/Care Managements Discussions: Per [facility] Triage Nursing notes reviewed. Limited review of prior medical records performed Vital Signs: reviewed and remarkable for HTN and tachy Differential diagnosis: Differential diagnoses includes but is not limited to pneumonia, bronchitis, COPD/Asthma exacerbation, pneumothorax, pulmonary embolism, congestive heart failure, acute coronary syndrome ER treatment provided: See below Diagnostics interpreted by me include EKG and cardiac monitoring as listed below: -Cardiac Monitoring: An order was placed for continuous cardiac monitoring. The monitor shows a rate of 101 with sinus rhythm. -ECG: Sinus rhythm rate of 03/27/2009 Normal axis Right bundle branch block T wave inversion in the septal leads QTc 449 -Laboratory studies:Interpreted by me as stated above in MDM and shown below. Imaging studies: Xrays: As interpreted by me: Portable AP upright 1 view of the chest shows no focal infiltrate CTs show: none Procedures:none Critical Care: I have personally spent 35 minutes of critical care time in the direct management of this patient. This includes bedside care, interpretation of diagnostic studies, and testing, discussion with consultants, patient, and family members, and other required patient management activities. This 35 minutes is in excess of all separately billable procedures. Past Med/Surg History Medical History Back pain Surgical History No pertinent past surgical history Social History Smoking Status: Current some day smoker Tobacco Type: Cigarettes Feels Safe at Home: Yes Allergies Allergies Allergy/AdvReac Type Severity Reaction Status Date / Time metformin AdvReac Diarrhea Verified 03/27/23 19:01 Home Meds Home Medications Medication Instructions Recorded Confirmed amlodipine 10 mg tablet 10 mg PO QAM 03/06/23 03/27/23 chlorpheniramine-pseudoephedrine 2 5 ml PO Q6 PRN .flu symptoms 03/06/23 03/27/23 mg-30 mg/5 mL oral liquid glipizide 10 mg tablet 10 mg PO BID 03/06/23 03/27/23 lisinopril 40 mg tablet 40 mg PO DAILY 03/06/23 03/27/23 metoprolol succinate 25 mg 25 mg PO QA 03/06/23 03/27/23 tablet,extended release 24 hr omeprazole 20 mg capsule,delayed 20 mg PO QA 03/06/23 03/27/23 release paroxetine HCl 40 mg tablet 40 mg PO QAM 03/06/23 03/27/23 rosuvastatin 40 mg tablet 40 mg PO HS 03/06/23 03/27/23 sitagliptin phosphate 100 mg 100 mg PO QA 03/27/23 03/27/23 tablet (Januvia) Results & Data (ED) Vital Signs Vital Signs - 24 hr 03/27/23 16:36 03/27/23 19:19 Temperature 36.7 C Temperature Source Temporal Artery Scan Pulse Rate 107 H 74 Respiratory Rate 18 Blood Pressure 145/78 H Blood Pressure Mean 100 Pulse Oximetry 95 Oxygen Delivery Method Room Air Sepsis Recent Fever Within 48 Hours No Sepsis New/Unexplained Change in Mental Status No Sepsis Action Taken by Nursing No Action Required Laboratory Data 03/27/23 16:46 03/27/23 16:46 Lab Results 03/27/23 03/27/23 03/27/23 Range/Units 16:30 16:46 19:16 WBC 6.15 (4.8-10.8) K/ul RBC 5.42 (4.70-6.10) M/uL Hgb 15.8 (14.0-18.0) g/dl Hct 47.5 (42.0-52.0) % MCV 87.6 (80.0-100.0) fL MCH 29.2 (25.0-34.0) pg MCHC 33.3 (32.0-36.0) g/dL RDW Std Deviation 40.2 (36.4-46.3) fL RDW Coeff of Anne 12.6 (11.5-14.5) % Plt Count 269 (130-400) K/uL MPV 11.2 (9.4-12.4) fL Immature Gran % (Auto) 0.2 % Neut % (Auto) 76.1 % Lymph % (Auto) 16.4 % [place] % (Auto) 6.8 % Eos % (Auto) 0.3 % Baso % (Auto) 0.2 % Neut # (Auto) 4.68 (1.40-6.50) K/uL Lymph # (Auto) 1.01 L (1.20-3.40) K/uL [place] # (Auto) 0.42 (0.11-0.59) K/uL Eos # (Auto) 0.02 (0.00-0.50) K/uL Baso # (Auto) 0.01 (0.00-0.20) K/uL Immature Gran # (Auto) 0.01 (0.01-0.20) K/uL VBG pH 7.31 L (7.36-7.41) VBG pCO2 48 (38-50) mmHg VBG pO2 20 mmHg VBG HCO3 24 mmol/L VBG O2 Saturation < 60.0 % VBG Base Excess -2.5 mEq/L Sodium 131 L (136-145) mmol/L Potassium 4.3 (3.5-5.1) mmol/L Chloride 98 (98-107) mmol/L Carbon Dioxide 20 L (21-32) mmol/L Anion Gap 13 H (3-11) BUN 14 (6-23) mg/dl Creatinine 1.22 (0.6-1.4) mg/dl Est Cr Clr Drug Dosing 101.6 ml/min Est GFR ( Amer) 81.9 ml/min Est GFR (Non-Af Amer) 70.7 ml/min BUN/Creatinine Ratio 11.5 (10-20) Glucose 391 H* (70-99(Fasting)) mg/dl POC Glucose (70-99) mg/dl Estimat Average Glucose 269 mg/dl Hemoglobin A1c 11.0 H (4.5-5.6) % Calcium 9.2 (8.6-10.3) mg/dl Total Bilirubin 0.6 (0.2-1.0) mg/dl AST 27 (13-39) U/L ALT 40 (7-52) U/L Alkaline Phosphatase 73 (34-104) U/L Troponin I High Sens 4.8 (0-20) pg/ml Total Protein 8.1 (6.0-8.3) gm/dl Albumin 4.4 (3.4-5.0) gm/dl Globulin 3.7 (2.5-4.0) gm/dl Albumin/Globulin Ratio 1.2 (0.9-2) Nasal Influ A H1 2009 PCR DETECTED A* (NotDetected) Adenovirus (PCR) Not Detected (NotDetected) B. pertussis DNA (PCR) Not Detected (NotDetected) B.parapertussis DNA PCR Not Detected (NotDetected) C. pneumoniae DNA (PCR) Not Detected (NotDetected) Coronavirus OC43 (PCR) Not Detected (NotDetected) Coronavirus HKU1 (PCR) Not Detected (NotDetected) Coronavirus 229E (PCR) Not Detected (NotDetected) SARS-CoV-2 (PCR) Not Detected (NotDetected) Coronavirus NL63 (PCR) Not Detected (NotDetected) Human Metapneumovir PCR Not Detected (NotDetected) Influenza Type B (PCR) Not Detected (NotDetected) M. pneumoniae (PCR) Not Detected (NotDetected) Parainfluenza 1 (PCR) Not Detected (NotDetected) Parainfluenza 2 (PCR) Not Detected (NotDetected) Parainfluenza 3 (PCR) Not Detected (NotDetected) Parainfluenza 4 (PCR) Not Detected (NotDetected) RSV (PCR) Not Detected (NotDetected) Entero/Rhino (PCR) Not Detected (NotDetected) 03/27/23 Range/Units 20:28 WBC (4.8-10.8) K/ul RBC (4.70-6.10) M/uL Hgb (14.0-18.0) g/dl Hct (42.0-52.0) % MCV (80.0-100.0) fL MCH (25.0-34.0) pg MCHC (32.0-36.0) g/dL RDW Std Deviation (36.4-46.3) fL RDW Coeff of Anne (11.5-14.5) % Plt Count (130-400) K/uL MPV (9.4-12.4) fL Immature Gran % (Auto) % Neut % (Auto) % Lymph % (Auto) % [place]yth % (Auto) % Eos % (Auto) % Baso % (Auto) % Neut # (Auto) (1.40-6.50) K/uL Lymph # (Auto) (1.20-3.40) K/uL [place] # (Auto) (0.11-0.59) K/uL Eos # (Auto) (0.00-0.50) K/uL Baso # (Auto) (0.00-0.20) K/uL Immature Gran # (Auto) (0.01-0.20) K/uL VBG pH (7.36-7.41) VBG pCO2 (38-50) mmHg VBG pO2 mmHg VBG HCO3 mmol/L VBG O2 Saturation % VBG Base Excess mEq/L Sodium (136-145) mmol/L Potassium (3.5-5.1) mmol/L Chloride (98-107) mmol/L Carbon Dioxide (21-32) mmol/L Anion Gap (3-11) BUN (6-23) mg/dl Creatinine (0.6-1.4) mg/dl Est Cr Clr Drug Dosing ml/min Est GFR ( Amer) ml/min Est GFR (Non-Af Amer) ml/min BUN/Creatinine Ratio (10-20) Glucose (70-99(Fasting)) mg/dl POC Glucose 287 H (70-99) mg/dl Estimat Average Glucose mg/dl Hemoglobin A1c (4.5-5.6) % Calcium (8.6-10.3) mg/dl Total Bilirubin (0.2-1.0) mg/dl AST (13-39) U/L ALT (7-52) U/L Alkaline Phosphatase (34-104) U/L Troponin I High Sens (0-20) pg/ml Total Protein (6.0-8.3) gm/dl Albumin (3.4-5.0) gm/dl Globulin (2.5-4.0) gm/dl Albumin/Globulin Ratio (0.9-2) Nasal Influ A H1 2009 PCR (NotDetected) Adenovirus (PCR) (NotDetected) B. pertussis DNA (PCR) (NotDetected) B.parapertussis DNA PCR (NotDetected) C. pneumoniae DNA (PCR) (NotDetected) Coronavirus OC43 (PCR) (NotDetected) Coronavirus HKU1 (PCR) (NotDetected) Coronavirus 229E (PCR) (NotDetected) SARS-CoV-2 (PCR) (NotDetected) Coronavirus NL63 (PCR) (NotDetected) Human Metapneumovir PCR (NotDetected) Influenza Type B (PCR) (NotDetected) M. pneumoniae (PCR) (NotDetected) Parainfluenza 1 (PCR) (NotDetected) Parainfluenza 2 (PCR) (NotDetected) Parainfluenza 3 (PCR) (NotDetected) Parainfluenza 4 (PCR) (NotDetected) RSV (PCR) (NotDetected) Entero/Rhino (PCR) (NotDetected) Administered Medications Insulin Human Regular 250 (units/ Sodium Chloride) 250 mls @ 5 mls/hr IV .Q24H [facility]; Protocol Stop: 04/26/23 20:29 Last Titration: 03/27/23 23:09 Dose: 5 units/hr, 5 mls/hr Documented By: NAHEED Co-signed By: OPHELIA Admin: 03/27/23 21:58 Dose: 5 units/hr, 5 mls/hr Documented By: OPHELIA Co-signed By: DMBraden Discontinued Medications Sodium Chloride (Nss) 1,000 mls @ 999 mls/hr IV .Q1H1M DERRICK Stop: 03/27/23 17:45 Last Infusion: 03/27/23 20:25 Dose: Infused Documented By: Admin: 03/27/23 17:44 Dose: 999 mls/hr Documented By: RYAN Sodium Chloride (Nss) 1,000 mls @ 999 mls/hr IV .Q1H1M DERRICK Stop: 03/27/23 20:58 Last Infusion: 03/27/23 23:05 Dose: Infused Documented By: Admin: 03/27/23 22:04 Dose: 999 mls/hr Documented By: Infusion: 03/27/23 22:04 Dose: Infused Documented By: Admin: 03/27/23 20:25 Dose: 999 mls/hr Documented By: OPHELIA Insulin Human Regular (Novolin-R Insulin Per Unit Charge) 4 units IV NOW STA Stop: 03/27/23 19:47 Last Admin: 03/27/23 20:46 Dose: 4 units Documented By: OPHELIA Co-signed By: MIREYA Discharge Plan Visit Data Chief Complaint: Illness ED Provider: David Poon Discharge Problem: DKA (diabetic ketoacidosis), Viral infection, Hyperglycemia Patient Disposition: Admitted As Inpatient Discharge Instructions Interventions: ED Discharge Assessment Last Done: 03/27/23 22:01 Discharge Problem: DKA (diabetic ketoacidosis) Qualifiers: Diabetes mellitus type: type 2 Diabetes mellitus complication detail: without coma Qualified Code(s): E11.10 - Type 2 diabetes mellitus with ketoacidosis without coma
[2023-03-27 19:25] LABS: Base Excess VBG -2.5 mEq/L; HCO3 VBG 24 mmol/L; Oxygen Saturation VBG < 60.0 %; PCO2 VBG 48 mmHg (38-50); PO2 VBG 20 mmHg; pH VBG 7.31 (7.36-7.41)
[2023-03-27] MEDS ORDERED: NovoLIN-R INSULIN PER UNIT CHARGE IV STA (19:46)
[2023-03-27] MEDS ORDERED: STAT IV Infusion **Titration per Protocol STA (20:23)
[2023-03-27] MEDS ORDERED: DKA GOAL RANGE 150-250 mg/dl ONE (20:23)
[2023-03-27] MEDS ORDERED: CARBOHYDRATES FOR HYPOGLYCEMIA PO PRN (20:23)
[2023-03-27] MEDS ORDERED: DEXTROSE 50% 50 ML SYRINGE IV PRN (20:23)
[2023-03-27] MEDS ORDERED: GLUCOSE 40% GEL 15 GM TUBE PO PRN (20:23)
[2023-03-27] MEDS ORDERED: GLUCAGON FOR INJ 1 MG VIAL SQ PRN (20:23)
[2023-03-27] MEDS ORDERED: GLUCOSE 10 TAB/TUBE PO PRN (20:23)
[2023-03-27] MEDS: SODIUM CHLORIDE 0.9% 1,000 ML IV SCH ×2 (20:25→22:04)
[2023-03-27] MEDS ORDERED: INSULIN REGULAR 250 UNITS in SODIUM CHLORIDE 0.9% 247.5 ML IV SCH (20:30)
--- NOTE | 2023-03-27 20:59 | History & Physical Report ---
Date of Service March 27, 2023 Assessment & Plan (1) DKA (diabetic ketoacidosis): (2) HTN (hypertension): (3) HLD (hyperlipidemia): (4) Mood disorder: (5) Viral infection: Plan Pt is a 47yoM with PMHx significant for DMII, HTN, HLD, mood disorder admitted with mild DKA in the setting of a viral infection. DMII with hyperglycemia DKA Glucose of 391 on admission hgba1c of 11 VBG with pH of 7.3, anion gap of 13 Sodium of 131, corrected sodium 136-138 On insulin drip, IV fluids q4h BMP and VBG, mag and phos checks Hold home januvia and glipizide Glycemic consult Viral Infection Pt positive for nasal influenza Type A H1 2008 No increased oxygen requirement Duonebs and albuterol inhaler prn Supportive care Continue other home meds as ordered CODE STATUS: Full code DVT prophylaxis: Lovenox SQ Diet: NPO at this time Dispo: PCU/tele History of Present Illness Chief Complaint: Dizziness Primary Care Provider: Alejandro Lees Pt is a 47yoM with PMHx significant for DMII, HTN, HLD, mood disorder admitted with mild DKA in the setting of a viral infection. States that he started having a sore throat on about 4 days ago with cough and sinus congestion. Had been taking OTC meds to help. However today at work, was doing lots of bending when he started having episodes of dizziness and lightheadedness and was brought in by a coworker. States that he is having some SOB and chest tightness. Has not had anything to eat today, fells like he might be able to tolerate food. Denies N/V, diarrhea or constipation. States body feels weak. States that his pcp started him on januvia about a week or two ago. has scheduled follow up in a few days. States he has been taking the januiva with the glipizide as prescribed. Unsure of his last hgba1c. Allergies Allergy/AdvReac Type Severity Reaction Status Date / Time metformin AdvReac Diarrhea Verified 03/27/23 19:01 Home Medications Medication Instructions Recorded Confirmed Type amlodipine 10 mg tablet 10 mg PO QAM 03/06/23 03/27/23 History chlorpheniramine-pseudoephedrine 2 5 ml PO Q6 PRN .flu symptoms 03/06/23 03/27/23 History mg-30 mg/5 mL oral liquid glipizide 10 mg tablet 10 mg PO BID 03/06/23 03/27/23 History lisinopril 40 mg tablet 40 mg PO DAILY 03/06/23 03/27/23 History metoprolol succinate 25 mg 25 mg PO QAM 03/06/23 03/27/23 History tablet,extended release 24 hr omeprazole 20 mg capsule,delayed 20 mg PO QAM 03/06/23 03/27/23 History release paroxetine HCl 40 mg tablet 40 mg PO QAM 03/06/23 03/27/23 History rosuvastatin 40 mg tablet 40 mg PO HS 03/06/23 03/27/23 History sitagliptin phosphate 100 mg 100 mg PO QAM 03/27/23 03/27/23 History tablet (Januvia) Past Med/Surg History Medical History Back pain Surgical History No pertinent past surgical history Social History Smoking Status: Current some day smoker Tobacco Type: Cigarettes Feels Safe at Home: Yes Review of Systems Review of Systems: All systems reviewed & are unremarkable except as noted in Subjective Physical Exam Physical Exam: General: Alert, oriented. No acute distress Skin: No noted rashes or bruises Psych: Appropriate mood and affect Neuro: No gross deficits HEENT: NC/AT Chest: Nontender to palpation. CV: RRR, Resp: Breath sounds with scattered wheezes bilaterally, no increased effort of breathing. Abdomen: Soft, nontender, nondistended. Extremities: No edema in lower extremities bilaterally. Results & Data Results & Data Vital Signs (Past 12 Hours) Vital Signs Temp Pulse Resp BP Pulse Ox O2 Del Method 03/27/23 19:19 74 03/27/23 16:36 36.7 C 107 H 18 145/78 H 95 Room Air
[2023-03-27 21:34] LABS: Estimated Average Glucose 269 mg/dl
[2023-03-27 21:45] LABS: Appearance Urine Clear (Clear); Bacteria Urine Automated Negative (Negative); Bilirubin Urine Negative (Negative); Blood Urine Negative (Negative); Color Urine Yellow; Epithelial Cell Urine Auto 20-30 /lpf (0-5); Glucose Urine UA 2+ (Negative); Ketones Urine Negative (Negative); Leukocyte Esterase Urine Negative (Negative); Nitrite Urine Negative (Negative); Protein Urine 2+ (Negative); RBC Urine Automated 0-4 /hpf (0-4); Specific Gravity Urine 1.015 (1.000-1.030); Urobilinogen Urine Negative (Negative)
[2023-03-27] MEDS ORDERED: PHARMACY GLYCEMIC MGMT CONSULT PRN (23:06)
[2023-03-27] MEDS ORDERED: ALBUT/IPRATROP 3MG/0.5MG NEB 3 ML VIAL NEB PRN (23:13)
[2023-03-27] MEDS ORDERED: ALBUTEROL HFA 8 GM INHALER INH PRN (23:13)
[2023-03-28 00:51] LABS: BUN Creatinine Ratio 14.5 (10-20); Calcium 8.4 mg/dl (8.6-10.3); Creatinine Clr Calc Pharmacy 149.3 ml/min; Est GFR (African American) 122.3 ml/min; Est GFR (Non-African American) 105.5 ml/min; Magnesium 1.7 mg/dl (1.7-2.4); Phosphorus 2.8 mg/dl (2.5-4.9); Potassium 3.7 mmol/L (3.5-5.1)
[2023-03-28] MEDS: D5NSS + 20MEQ KCL 20 MEQ/1,000 ML BAG IV SCH ×2 (00:51→13:33)
[2023-03-28] MEDS: INSULIN ASPART PER UNIT CHARGE SC SCH ×4 (02:03→21:09)
[2023-03-28 05:02] LABS: BUN Creatinine Ratio 14.9 (10-20); Calcium 8.3 mg/dl (8.6-10.3); Creatinine Clr Calc Pharmacy 160.2 ml/min; Est GFR (African American) 133.6 ml/min; Est GFR (Non-African American) 115.2 ml/min; Magnesium 1.6 mg/dl (1.7-2.4); Phosphorus 3.3 mg/dl (2.5-4.9); Potassium 3.6 mmol/L (3.5-5.1)
--- NOTE | 2023-03-28 07:05 | XRay Report ---
XR chest 1V portable CLINICAL HISTORY: Cough. COMPARISON STUDY: Chest radiograph March 06, 2023. FINDINGS: Lung volumes are normal. Hazy left basilar opacity is likely due to overlying soft tissues and similar to prior exam. There is no pneumothorax or pleural effusion. Cardiac size is stable. Medi astinal contours are normal. There is no evidence for pulmonary edema. IMPRESSION: No acute cardiopulmonary findings. No change in appearance of the chest. ACT 112: Negative or not required by law. Electronically signed by: Davi Patiño M.D. 03/28/2023 7:03 AM
[2023-03-28 09:18] LABS: BUN Creatinine Ratio 15.2 (10-20); Calcium 8.1 mg/dl (8.6-10.3); Creatinine Clr Calc Pharmacy 162.6 ml/min; Est GFR (African American) 134.4 ml/min; Est GFR (Non-African American) 115.9 ml/min; Magnesium 1.6 mg/dl (1.7-2.4); Phosphorus 2.9 mg/dl (2.5-4.9); Potassium 3.7 mmol/L (3.5-5.1)
[2023-03-28] MEDS: METOPROLOL SUCC 25MG EXT REL TAB PO SCH (10:02)
[2023-03-28] MEDS: PARoxetine HCL 20 MG TAB PO SCH (10:02)
--- NOTE | 2023-03-28 10:49 | Electrocardiogram Report ---
Test Reason : Blood Pressure : / mmHG Vent. Rate : 110 BPM Atrial Rate : 110 BPM P-R Int : 148 ms QRS Dur : 100 ms QT Int : 332 ms P-R-T Axes : 038 021 -03 degrees QTc Int : 449 ms Sinus tachycardia Incomplete right bundle branch block T wave abnormality, consider inferior ischemia T wave abnormality, consider anterior ischemia Abnormal ECG When compared with ECG of 06-MAR-2023 18:33, Vent. rate has increased BY 42 BPM Non-specific change in ST segment in Inferior leads Confirmed by Rusty Bear ([id number]) on 03/28/2023 10:48:51 AM Referred By: REFERRED SELF Confirmed By:Rusty Bear
[2023-03-28] MEDS: ENOXAPARIN INJ 40 MG/0.4 ML SYR SQ SCH (10:56)
--- NOTE | 2023-03-28 11:54 | Hospitalist Progress Note ---
Date of Service March 28, 2023 Assessment & Plan (1) DKA (diabetic ketoacidosis): (2) HTN (hypertension): (3) HLD (hyperlipidemia): (4) Mood disorder: (5) Viral infection: Plan Pt is a 47yoM with PMHx significant for DMII, HTN, HLD, mood disorder admitted with mild DKA in the setting of a viral infection. He is being managed for the following: DMII with hyperglycemia DKA Glucose of 391 on admission and hgba1c of 11 A1c of 11.4 on 02/14/23 at PCP office. Anion gap has closed multiple times, electrolytes has been stabilized. Patient undergoing DKA protocol per pharmacy, can be transitioned to subcutaneous insulin bridge and diet. Continue with IV fluids for for now, can DC when insulin drip is DC'd 2 hours after subcutaneous bridge.. Sliding scale insulin. Hold home januvia and glipizide Glycemic consult, appreciate recommendation. Viral Infection Pt positive for nasal influenza Type A H1 2008 No increased oxygen requirement Duonebs and albuterol inhaler prn Supportive care Patient reports improving cough and sore throat. Continue other home meds as ordered CODE STATUS: Full code DVT prophylaxis: Lovenox SQ Diet: NPO at this time Dispo: PCU/tele Admission and Anticipated Discharge Date Admission Date: March 27, 2023 Subjective Patient was seen and examined at bedside. Patient was lying semiupright in bed, on room air, NAD, denies nausea, vomiting, abdominal pain. Patient reports improvement in his lightheadedness and dizziness. Denies headache. Patient reports improvement in his sore throat/cough. Makes scant whitish mucus occasionally. Patient reports feeling better, offers no other complaints. Physical Exam Physical Exam: GENERAL: Alert and oriented x3. NAD, on RA. HEENT: No pallor, no icterus. Pupils equal, round and reactive to light. Oral mucosa moist. NECK: No JVD, no neck masses. HEART: S1 and S2 heard. Regular rate and rhythm. No murmur, no gallop. RESPIRATORY SYSTEM: Normal AP diameter. No accessory muscle use. Occasional rhonchi, no wheezing, bibasal crackles. ABDOMEN: Soft, bowel sounds present, nontender, no distention. CENTRAL NERVOUS SYSTEM: No facial droop. Speech is clear. Obeys simple commands. Moves extremities. EXTREMITIES: No edema, no erythema seen. Results & Data Results & Data Vital Signs (Past 12 Hours) Vital Signs Temp Pulse Pulse Resp BP BP Pulse Ox 03/28/23 11:33 36.9 C 70 18 153/82 H 95 03/28/23 10:25 64 03/28/23 10:08 37.0 C 58 L 18 137/88 95 03/28/23 08:30 67 19 140/86 94 03/28/23 07:04 66 03/28/23 06:10 63 12 94 03/28/23 06:00 59 L 17 94 03/28/23 06:00 137/83 03/28/23 05:50 59 L 18 95 03/28/23 05:40 58 L 16 92 03/28/23 05:30 59 L 15 94 03/28/23 05:30 131/77 03/28/23 05:20 56 L 23 94 03/28/23 05:10 58 L 24 95 03/28/23 05:00 134/77 03/28/23 05:00 56 L 17 95 03/28/23 04:50 57 L 22 94 03/28/23 04:40 56 L 22 93 03/28/23 04:36 57 L 23 137/82 94 03/28/23 04:34 137/82 03/28/23 04:34 68 23 94 03/28/23 04:33 68 17 03/28/23 04:20 65 22 93 03/28/23 04:10 58 L 23 93 03/28/23 04:00 68 20 91 03/28/23 03:50 58 L 22 94 03/28/23 03:40 59 L 20 94 03/28/23 03:30 57 L 24 94 03/28/23 03:20 69 21 93 03/28/23 03:10 61 20 95 03/28/23 03:00 62 22 94 03/28/23 02:50 60 17 95 03/28/23 02:40 60 24 94 03/28/23 02:30 61 21 95 03/28/23 02:20 68 20 97 03/28/23 02:10 62 20 94 03/28/23 02:00 65 23 95 03/28/23 01:50 62 21 95 03/28/23 01:40 61 21 96 03/28/23 01:30 59 L 22 95 03/28/23 01:20 64 22 95 03/28/23 01:10 63 20 93 03/28/23 01:02 67 21 96 03/28/23 00:40 62 20 95 03/28/23 00:30 62 20 96 03/28/23 00:20 69 22 96 03/28/23 00:10 68 24 97 03/28/23 00:00 62 20 95 03/28/23 00:00 142/90 H 03/27/23 23:50 63 23 95 03/27/23 23:48 67 O2 Del Method 03/28/23 11:33 Room Air 03/28/23 10:25 03/28/23 10:08 Room Air 03/28/23 08:30 03/28/23 07:04 03/28/23 06:10 03/28/23 06:00 03/28/23 06:00 03/28/23 05:50 03/28/23 05:40 03/28/23 05:30 03/28/23 05:30 03/28/23 05:20 03/28/23 05:10 03/28/23 05:00 03/28/23 05:00 03/28/23 04:50 03/28/23 04:40 03/28/23 04:36 Room Air 03/28/23 04:34 03/28/23 04:34 03/28/23 04:33 03/28/23 04:20 03/28/23 04:10 03/28/23 04:00 03/28/23 03:50 03/28/23 03:40 03/28/23 03:30 03/28/23 03:20 03/28/23 03:10 03/28/23 03:00 03/28/23 02:50 03/28/23 02:40 03/28/23 02:30 03/28/23 02:20 03/28/23 02:10 03/28/23 02:00 03/28/23 01:50 03/28/23 01:40 03/28/23 01:30 03/28/23 01:20 03/28/23 01:10 03/28/23 01:02 03/28/23 00:40 03/28/23 00:30 03/28/23 00:20 03/28/23 00:10 03/28/23 00:00 03/28/23 00:00 03/27/23 23:50 03/27/23 23:48 (1) DKA (diabetic ketoacidosis) Diabetes mellitus complication detail: without coma Diabetes mellitus type: type 2 Qualified Code(s): E11.10 - Type 2 diabetes mellitus with ketoacidosis without coma
[2023-03-28] MEDS ORDERED: DC IV INSULIN INFUSION 1 EA DEVI ONE (12:04)
[2023-03-28] MEDS ORDERED: INSULIN ASPART PER UNIT CHARGE SC SCH (12:15)
[2023-03-28] MEDS ORDERED: LANTUS PER UNIT CHARGE SQ ONE (12:15)
[2023-03-28 12:59] LABS: BUN Creatinine Ratio 15.4 (10-20); Calcium 8.1 mg/dl (8.6-10.3); Creatinine Clr Calc Pharmacy 165.1 ml/min; Est GFR (African American) 135.2 ml/min; Est GFR (Non-African American) 116.7 ml/min; Magnesium 1.6 mg/dl (1.7-2.4); Potassium 3.8 mmol/L (3.5-5.1)
--- NOTE | 2023-03-28 13:50 | Pharmacy Report ---
Pharmacy Glycemic Short Note 2 - Date of Service March 28, 2023 - Glycemic Short BSG Results (Last 24 hours): 03/27/23 03/27/23 03/27/23 16:46 20:28 21:53 Glucose 391 H* POC Glucose 287 H 216 H 03/27/23 03/28/23 03/28/23 23:05 00:05 00:22 Glucose 148 H POC Glucose 194 H 156 H 03/28/23 03/28/23 03/28/23 01:06 02:06 03:11 Glucose POC Glucose 126 H 120 H 117 H 03/28/23 03/28/23 03/28/23 04:29 04:31 05:18 Glucose 134 H POC Glucose 133 H 136 H 03/28/23 03/28/23 03/28/23 06:13 07:32 08:23 Glucose 152 H POC Glucose 154 H 190 H 03/28/23 03/28/23 03/28/23 08:28 09:40 10:36 Glucose POC Glucose 148 H 164 H 163 H 03/28/23 03/28/23 03/28/23 11:28 12:14 12:16 Glucose 181 H POC Glucose 167 H 176 H OUTPATIENT ANTIDIABETIC REGIMEN: * glipizide 10mg PO BID * Januvia 100mg QAM * HbA1C 11% (03/27/23) ASSESSMENT: * Skyler is a 47 YOM admitted with Influenza A and a history of T2DM. Pharmacy has been consulted for glycemic management while inpatient. * Upon arrival, he was found to have elevated glucose and mild DKA. He was subsequently started on an insulin infusion yesterday evening and potassium fluids. * He has been requiring minimal amounts of insulin (currently running at 1.3 units/hr). Plan to transition to SQ insulin this afternoon with additional of diet at lunch. Lantus 20 units x1 given (~1/2 of estimated daily requirement while on insulin infusion). Novolog with carb ratio based on insulin calculator at lunch. Lantus scale at bedtime if hyperglycemic. * Novolog initiated at a weight based stress of 2 starting with dinner. PLAN FOR INPATIENT GLYCEMIC CONTROL: * Hold outpatient oral diabetes medications * Basal insulin * Lantus 20 units SQ with lunch x1 * Lantus 0-20 units SQ at bedtime based on BSG (see eMAR for additional details) * Reassess basal insulin in AM. * Bolus insulin * NovoLog per scale ACHS or Q6hrs while NPO * Goal Range: Low 110 mg/dL - High 140 mg/dL * Correction Factor: 25 mg/dL/unit * Nutritional / Prandial insulin per carb ratio of 1 unit per 9 grams CHO consumed
[2023-03-28 17:55] LABS: BUN Creatinine Ratio 15.5 (10-20); Calcium 8.4 mg/dl (8.6-10.3); Creatinine Clr Calc Pharmacy 151.2 ml/min; Est GFR (African American) 130.4 ml/min; Est GFR (Non-African American) 112.5 ml/min; Magnesium 1.6 mg/dl (1.7-2.4); Phosphorus 2.9 mg/dl (2.5-4.9)
[2023-03-28] MEDS ORDERED: ROSUVASTATIN CALCIUM 20 MG TAB PO SCH (21:00)
[2023-03-28] MEDS ORDERED: LANTUS PER UNIT CHARGE SC SCH (21:00)
[2023-03-28 21:54] LABS: BUN Creatinine Ratio 11.8 (10-20); Calcium 8.5 mg/dl (8.6-10.3); Creatinine Clr Calc Pharmacy 105.2 ml/min; Est GFR (African American) 101.7 ml/min; Est GFR (Non-African American) 87.7 ml/min; Magnesium 1.6 mg/dl (1.7-2.4); Phosphorus 3.1 mg/dl (2.5-4.9); Potassium 4.3 mmol/L (3.5-5.1)
[2023-03-29 01:38] LABS: BUN Creatinine Ratio 14.8 (10-20); Calcium 8.6 mg/dl (8.6-10.3); Creatinine Clr Calc Pharmacy 132.5 ml/min; Est GFR (African American) 123.5 ml/min; Est GFR (Non-African American) 106.6 ml/min; Magnesium 1.7 mg/dl (1.7-2.4); Phosphorus 3.1 mg/dl (2.5-4.9)
[2023-03-29 08:06] LABS: Hematocrit (blood only) 42.5 % (42.0-52.0); Hemoglobin 13.9 g/dl (14.0-18.0); Mean Corpuscular Hemoglobin 28.7 pg (25.0-34.0); Mean Corpuscular Hgb Conc 32.7 g/dL (32.0-36.0); Mean Corpuscular Volume 87.8 fL (80.0-100.0); Mean Platelet Volume 10.6 fL (9.4-12.4); Platelet Count 198 K/uL (130-400); RDW Coefficient of Variation 12.2 % (11.5-14.5); RDW Standard Deviation 39.6 fL (36.4-46.3); Red Blood Count 4.84 M/uL (4.70-6.10); White Blood Count 4.41 K/ul (4.8-10.8)
[2023-03-29] MEDS: ENOXAPARIN INJ 40 MG/0.4 ML SYR SQ SCH (08:12)
[2023-03-29] MEDS: INSULIN ASPART PER UNIT CHARGE SC SCH ×2 (08:12→12:08)
[2023-03-29] MEDS: PARoxetine HCL 20 MG TAB PO SCH (08:13)
[2023-03-29] MEDS: METOPROLOL SUCC 25MG EXT REL TAB PO SCH (08:14)
[2023-03-29 08:23] LABS: BUN Creatinine Ratio 16.9 (10-20); Calcium 8.8 mg/dl (8.6-10.3); Creatinine Clr Calc Pharmacy 151.2 ml/min; Est GFR (African American) 130.4 ml/min; Est GFR (Non-African American) 112.5 ml/min; Magnesium 1.8 mg/dl (1.7-2.4); Potassium 4.2 mmol/L (3.5-5.1)
[2023-03-29] MEDS ORDERED: LANTUS PER UNIT CHARGE SC SCH (09:00)
--- NOTE | 2023-03-29 13:57 | Discharge Summary ---
Date of Service March 29, 2023 Admission HPI Per Admitting Provider Pt is a 47yoM with PMHx significant for DMII, HTN, HLD, mood disorder admitted with mild DKA in the setting of a viral infection. States that he started having a sore throat on about 4 days ago with cough and sinus congestion. Had been taking OTC meds to help. However today at work, was doing lots of bending when he started having episodes of dizziness and lightheadedness and was brought in by a coworker. States that he is having some SOB and chest tightness. Has not had anything to eat today, fells like he might be able to tolerate food. Denies N/V, diarrhea or constipation. States body feels weak. States that his pcp started him on januvia about a week or two ago. has scheduled follow up in a few days. States he has been taking the januiva with the glipizide as prescribed. Unsure of his last hgba1c. Admission Exam Per Admitting Provider General: Alert, oriented. No acute distress Skin: No noted rashes or bruises Psych: Appropriate mood and affect Neuro: No gross deficits HEENT: NC/AT Chest: Nontender to palpation. CV: RRR, Resp: Breath sounds with scattered wheezes bilaterally, no increased effort of breathing. Abdomen: Soft, nontender, nondistended. Extremities: No edema in lower extremities bilaterally. Principal Diagnosis Uncontrolled type 2 diabetes mellitus Influenza A Discharge Exam Constitutional: WD/WN, vitals as above, NAD, sitting up in bed, pleasant, conversing easily Respiratory: normal respiratory effort, lungs clear to auscultation, no wheeze, rales, rhonchi. Normal insp/exp effort, no accessory muscle use Cardiovascular: RRR, no murmur, no edema Vessels: no JVD or carotid bruit Chest: normal inspection of chest Abdomen: normal bowel sounds, soft, nontender, no hepatosplenomegaly Musculoskeletal: no cyanosis or clubbing, extremities motor strength 5/5 Skin: no rashes, warm and dry normal turgor Discharge Data Allergies Allergy/AdvReac Type Severity Reaction Status Date / Time metformin AdvReac Diarrhea Verified 03/27/23 19:01 Consultations 03/27/23 20:23 ED Decision to Admit Stat Hospital Course (1) DKA (diabetic ketoacidosis): (2) HTN (hypertension): (3) HLD (hyperlipidemia): (4) Mood disorder: (5) Viral infection: Plan Pt is a 47yoM with PMHx significant for DMII, HTN, HLD, mood disorder admitted with mild DKA in the setting of a viral infection. He was being managed for the following: DMII with hyperglycemia DKA Glucose of 391 on admission and hgba1c of 11 presented A1c of 11.4 on 02/14/23 at PCP office. Patient was started on IV insulin; transition over to subcu insulin and diet. Anion gap has closed electrolytes has been stabilized. life skills educator consulted. Patient discharged on Lantus 10 units once a day; discussed about titration. Patient to follow-up with PCP. Glimepiride was discontinued at discharge. Viral Infection positive for nasal influenza Type A H1 2008 No increased oxygen requirement Duonebs and albuterol inhaler prn Patient responded well with supportive care Please note the above document was generated using voice recognition software. It may contain grammatical, syntax or spelling errors. Any formal questions or concerns about the content, text or information contained within the body of this dictation should be directly addressed to the provider for clarification Total Time Total Time Spent Total Time Spent (In Minutes): 35 Total Time Includes: Examination of the Patient, Discharge Planning, Medication Reconciliation, Communication With Other Providers and Other Discharge Plan Discharge Items Patient Disposition: Home - Self-Care Reason For Visit: ILLNESS Discharge Diagnosis: Influenza A Uncontrolled type 2 diabetes Activity: Resume your previous activity Non-emergency contact: Primary Care Provider Call non-emergency contact if: you have any medication questions and your symptoms worsen Follow-up/Referrals: Marlin Mason PA-C [Outside Practitioners] - (Please note your previously scheduled appointment for 03/30/22 has been cancelled. Date & Time 04/03/2023 10:20 AM Provider Wei Melvin MD [facility] ) Diet: Regular Addtl Attending Provider Instructions: You were admitted to the hospital due to influenza A. Your blood glucose during the hospitalization was also found to be very high. Following adjustment needs to be made on your medication regimen for the diabetes: 1) stop taking glipizide 2) start taking Lantus 10 units in the morning. Please measure fasting blood glucose daily at home. If your blood glucose is greater than 120 mg per DL in the mornings for 2 days; increase the Lantus by 2 units. If your blood glucose is less than 80 mg per DL in the morning; decrease the dose of the Lantus by 2 units. Please discuss with your primary care doctor and community educator for further adjustment. An appointment is set up with your primary care doctor for April 03, 2023. Pending Studies at Discharge: No Stand-Alone Forms: [facility], Work/School Release, Smoking Ce ssation Medications and DC Order Prescriptions: New insulin glargine [Lantus Solostar U-100 Insulin] 100 unit/mL (3 mL) insulin pen 10 unit subcut DAILY Qty: 15 0RF (DME) pen needle, diabetic [Pen Needle] 32 gauge x 5/32" needle See Rx Instructions .ROUTE .MEDSUPPLY Qty: 1200 0RF Rx Instructions: As directed Continued amlodipine 10 mg tablet 10 mg PO QAM omeprazole 20 mg capsule,delayed release(DR/EC) 20 mg PO QAM metoprolol succinate 25 mg tablet extended release 24 hr 25 mg PO QAM paroxetine HCl 40 mg tablet 40 mg PO QAM lisinopril 40 mg tablet 40 mg PO DAILY rosuvastatin 40 mg tablet 40 mg PO HS chlorpheniramine-pseudoephed 2-30 mg/5 mL Liquid 5 ml PO Q6 PRN (Reason: .flu symptoms) Rx Instructions: DNExceed 4 doses/24h Januvia 100 mg tablet 100 mg PO QAM Discontinued glipizide 10 mg tablet 10 mg PO BID Discharge Orders: Discharge Order (Routine); Ordered 03/29/23 Ordered By: Sandip Blackwell Admission Data Admit Date/Time: 03/27/23 20:54 Attending Provider: Sandip Blackwell Admit Provider: Geovanna Lloyd Primary Care Provider: Alejandro Lees Other Providers: Geovanna Lloyd Other Interventions: Discharge Summary Assessment (RN) Last Done: 03/29/23 12:56
== END 2023-03-29 13:39 | disposition home or self-care (01) | DRG 639 ==
LOC: ED 16:20 → EDINP 20:54 → SUATTDRO 20:54 → 2S 22:01